=== PATIENT | male | born 1945 | race Two or more races ===

== ENCOUNTER 2019-09-15 10:45 | Inpatient (IN) | payer OTHER ==
[~2019-09-15] VITALS: Ht 165.1 cm; Wt 79.4 kg
[2019-09-15] MEDS ORDERED: JANUMET 50-5001 EACH PO (12:20)
[2019-09-15] MEDS ORDERED: ATORVASTATIN CA20 MG PO (12:21)
[2019-09-15] MEDS ORDERED: ENALAPRIL MALEAT5 MG PO (12:21)
[2019-09-27] MEDS ORDERED: PERCOCET 5-3251 EACH PO (09:04)
[2019-09-27] MEDS ORDERED: POLY119PG PO (09:04)
== END 2019-09-27 11:21 | disposition home or self-care (01) | DRG 355 ==
LOC: O/R 09-23 06:05 → SURG 09-23 06:05 → SURH 09-23 10:00 → SURG 09-23 10:28 → SURH 09-23 10:45 → SURG 09-27 08:54
PROVIDERS: ADMIT Surgery; ATTEND Surgery
PROC: 0WUF4JZ Supplement Abdominal Wall with Synthetic Substitute, Percutaneous Endoscopic Approach (ICD-10-PCS; principal; 2019-09-23 10:00)
PROC: 0T9B70Z Drainage of Bladder with Drainage Device, Via Natural or Artificial Opening (ICD-10-PCS; 2019-09-24)
DX: K43.0 Incisional hernia with obstruction, without gangrene (principal); R11.2 Nausea with vomiting, unspecified; R33.8 Other retention of urine; I11.9 Hypertensive heart disease without heart failure; E11.9 Type 2 diabetes mellitus without complications; Z79.4 Long term (current) use of insulin

== ENCOUNTER 2019-09-22 06:30 | Day surgery (SDC) | payer OTHER ==
[~2019-09-22 06:30] MED LIST: ATORVASTATIN CA20 MG PO; ENALAPRIL MALEAT5 MG PO; JANUMET 50-5001 EACH PO
== END 2019-09-22 10:15 | disposition home or self-care (01) ==
LOC: AMB-ENDOS 06:30
PROVIDERS: ATTEND Surgery
DX: K63.5 Polyp of colon (principal); Z20.828 Contact with and (suspected) exposure to other viral communicable diseases